=== PATIENT | female | born 1985 | race American Indian/Alaskan Native ===

== ENCOUNTER 2022-07-14 15:46 | Outpatient (CLI) | payer MEDICAID ==
[2022-07-14 16:04] VITALS: BP 112/62
[2022-07-14] MEDS ORDERED: LACTATED RINGERS 500 ML IV ONE (17:00)
== END 2022-07-14 17:34 | disposition home or self-care (01) ==
LOC: TRG 15:46 → APU 15:48 → TRG 17:34
PROVIDERS: ATTEND Obstetrics & Gynecology
DX: O26.853 Spotting complicating pregnancy, third trimester (principal); Z3A.35 35 weeks gestation of pregnancy
CPT/HCPCS: 59025

== ENCOUNTER 2022-07-29 12:36 | Outpatient (CLI) | payer MEDICAID ==
[2022-07-29 15:55] VITALS: BP 127/81
== END 2022-07-29 16:25 | disposition home or self-care (01) ==
LOC: TRG 12:36 → APU 12:38 → TRG 16:25
PROVIDERS: ATTEND Obstetrics & Gynecology
DX: O26.893 Other specified pregnancy related conditions, third trimester (principal); N89.8 Other specified noninflammatory disorders of vagina; Z3A.37 37 weeks gestation of pregnancy
CPT/HCPCS: 36415; 84112

== ENCOUNTER 2022-08-07 23:25 | Outpatient (CLI) | payer MEDICAID ==
[2022-08-08 00:38] VITALS: BP 130/81
== END 2022-08-08 00:50 | disposition home or self-care (01) ==
LOC: TRG 23:25 → APU 23:26 → TRG 08-08 00:50
PROVIDERS: ATTEND Obstetrics & Gynecology
DX: O26.893 Other specified pregnancy related conditions, third trimester (principal); J00 Acute nasopharyngitis [common cold]; R60.0 Localized edema; Z3A.38 38 weeks gestation of pregnancy
CPT/HCPCS: 59025